=== PATIENT | female | born 1970 | race Caucasian/White ===

== ENCOUNTER 2017-12-27 09:22 | Emergency (ER) | payer OTHER ==
--- NOTE | 2017-12-27 11:19 | UC ---
Lower Extremity/Ankle HPI - HPI Summary HPI Summary: 47 y/o female presents to the urgent care c/o left heel pain for the past 2 days. Pt reports she has been doing aerobics at the gym and last week she went hiking. However, left foot pain became exacerbated when she walks bare footed. Pain is 2/10 at rest dull and sharp 4/10 w/ walking and worse last night. Pt has taken Ibuprofen 400mg PO yesterday night for pain. She was Dx w/ foot tendonitis by an Orthopedic on 06/2017. Pt denies numbness or tingling sensation over left foot, calf pain, SOB, chest pain, palpitations, abdominal pain, N/V/D. - History of Current Complaint Chief Complaint: UCBackPain Stated Complaint: LEFT FOOT PAIN, BACK PAIN Time Seen by Provider: 12/27/17 11:18 Hx Obtained From: Patient Hx Last Menstrual Period: 12/09/2017 ?: No - takes OCP Onset/Duration: Gradual Onset, Lasting Days - 2 days, Still Present Severity Initially: Mild Severity Currently: Moderate Pain Intensity: 4 - walking Pain Scale Used: 0-10 Numeric Aggravating Factor(s): Ambulation Alleviating Factor(s): Rest, OTC Meds Able to Bear Weight: Yes - Risk Factors Gout Risk Factors: Negative DVT Risk Factors: Negative Septic Arthritis Risk Factor: Negative - Allergies/Home Medications Allergies/Adverse Reactions: Allergies Allergy/AdvReac Type Severity Reaction Status Date / Time No Known Allergies Allergy Verified 12/27/17 11:16 Home Medications: Home Medications Bcp 1 tab DAILY 12/27/17 [History Confirmed 12/27/17] PMH/Surg Hx/FS Hx/Imm Hx Previously Healthy: Yes - Pt denies PMHX - Family History Known Family History: Positive: Hypertension, Diabetes - Social History Occupation: Employed Full-time Lives: With Family Review of Systems Constitutional: Negative Skin: Negative Eyes: Negative ENT: Negative Respiratory: Negative Cardiovascular: Negative Gastrointestinal: Negative Genitourinary: Negative Motor: Negative Neurovascular: Negative Musculoskeletal: Decreased ROM - left foot, Other: - left heel pain Neurological: Negative Psychological: Negative Is Patient Immunocompromised?: No All Other Systems Reviewed And Are Negative: Yes Physical Exam - Summary Physical Exam Summary: Vital Signs Reviewed: Yes General : well developed, well nourished female w/o any apparent distress Eyes: Positive: Conjunctiva Clear - PERRLA, EOMI ENT: Positive: Normal ENT inspection, Hearing grossly normal, Pharynx normal, TMs normal Neck: Positive: Supple, Nontender, No Lymphadenopathy Respiratory: Positive: Chest non-tender, Lungs clear, Normal breath sounds, No respiratory distress Cardiovascular: Positive: RRR, No Murmur, Pulses Normal Abdomen Description: Positive: Nontender, No Organomegaly, Soft. Negative: CVA Tenderness (R), CVA Tenderness (L) Bowel Sounds: Positive: Present Musculoskeletal: Positive: Strength Intact, ROM Intact, No Edema,left Foot/Toes : Pt is able to bear weight but ambulate with mild limping. RT foot :No surface trauma, ecchymosis, erythema, lesions, ulcers or break in skin integrity. The L foot is without obvious asymmetry or deformity when compared to the R foot. No bony step-off, No tenderness to palpation over toes, Point tenderness over the sole of hindfoot, no swelling observed, FROM of left foot and ankle. Distal motor and neurovascular status are intact. Neurological Exam: Normal Psychological Exam: Normal Skin Exam: Normal Triage Information Reviewed: Yes Lower Extremity Course/Dx - Course Course Of Treatment: 47 y/o female presents to the urgent care c/o left heel pain for the past 2 days. Pt reports she has been doing aerobics at the gym and last week she went hiking. However, left foot pain became exacerbated when she walks bare footed. Pain is 2/10 at rest dull and sharp 4/10 w/ walking and worse last night. Pt has taken Ibuprofen 400mg PO yesterday night for pain. She was Dx w/ foot tendonitis by an Orthopedic on 06/2017. Pt denies numbness or tingling sensation over left foot, calf pain, SOB, chest pain, palpitations, abdominal pain, N/V/D.Hx obtained. LF foot X-ray ordered, Impression:There was no fracture, dislocation, soft tissue swelling or FB noted. Probably plantar fasciitis or tendonitis. Pt's foot immobilized with isaias-bandage. Advised RICE, and Rx Ibuprofen PO for pain, If not improvement of symptoms to f/u with Orthopedic DR referral for further evaluation and treatment. D/C instructions explained. Pt understood and agreed with D/C instructions - Differential Dx/Diagnosis Differential Diagnosis/HQI/PQRI: Arthritis, Contusion, Fracture (Closed), Gout, Sprain, Strain, Tendonitis Provider Diagnoses: 1- Acute Left foot pain. 2- Left foot plantar fasciitis Discharge - Sign-Out/Discharge Documenting (check all that apply): Patient Departure - D/c home All imaging exams completed and their final reports reviewed: Yes - Discharge Plan Condition: Stable Disposition: HOME Prescriptions: Ibuprofen TAB* [Motrin TAB* 800 MG] 800 mg PO Q6H PRN #30 tab PRN Reason: Pain Patient Education Materials: Plantar Fasciitis (ED) Referrals: [facility] [Outside] - 1 Week () Ranulfo Juarez MD [Medical Doctor] - 1 Week Additional Instructions: 1-Please take medications as directed to alleviate pain and swelling. 2-Please apply ice, keep your foot immobilized with the Isaias bandage. Avoid strenuous exercise or standing for long periods of time. Elevate your foot. Do not walk bear foot 3- Please f/u with your PCP on Orthopedic DR Juarez in 1 week if not improvement of symptoms for further evaluation and treatment. 4- Please f/u w/ Physical therapy referral for further evaluation and treatment - Billing Disposition and Condition Condition: STABLE Disposition: Home - Attestation Statements Provider Attestation: Per institutional requirements, I have reviewed the chart, however, I was not consulted specifically or made aware of this patient by the midlevel provider. I did not personally evaluate, interact with , or disposition this patient.
[2017-12-27 11:25] VITALS: BP 127/85
--- NOTE | 2017-12-27 11:57 | RAD ---
INDICATION: Acute left heel pain. TECHNIQUE: 3 views of the left foot were obtained. FINDINGS: The bones are in normal alignment. No fracture is seen. Joint spaces appear maintained. IMPRESSION: NO EVIDENCE FOR FRACTURE.
== END 2017-12-27 12:16 | disposition home or self-care (01) ==
LOC: UCCORT 09:22
DX: M72.2 Plantar fascial fibromatosis (principal)
CPT/HCPCS: 99212; G0463

== ENCOUNTER 2019-02-08 09:19 | Emergency (ER) | payer BC ==
--- NOTE | 2019-02-08 10:15 | UC ---
Abdominal Pain Female HPI - HPI Summary HPI Summary: 48 yo G0 with onset of epigastric and RUQ and right flank pain x 2+ days ago. Sharp pain began several hours after eating a burrito bowl, without associated nausea or vomiting. Stools have been normal. No previous hx of similar pain. Pain relieved with 3 x 800mg doses of ibuprofen , with last dose being taken last evening at 9 pm. Did not awaken in the night with pain, but was up to void. Ibuprofen did not worsen her epigastric pain or provoke nausea or vomiting. No dysphagia. Although pain is less today, she is concerned that she had right flank pain when she bent to put on her sock. Pain is worse in the RUQ and right flank. No hx of renal stones. Exercises regularly, doing core work, and does regularly use a weighted hula hoop. - History of Current Complaint Chief Complaint: UCAbdominalPain Stated Complaint: SHARP ABD PAIN(RT SIDE) X 36 HOURS,HEARTBURN Time Seen by Provider: 02/08/19 09:37 Hx Obtained From: Patient Hx Last Menstrual Period: "Well, I don't really get it anymore." Onset/Duration: Sudden Onset, Lasting Days, Still Present - overall improved. Timing: Intermittent Episodes Lasting: - hours Severity Initially: Moderate Severity Currently: Mild Pain Intensity: 3 Location: Epigastric, Other - present RUQ but also in the right flank to the level of the umbilicus. Radiates to: Chest - initially had radiation to chest, but this has now resolved. Character: Sharp Aggravating Factor(s): Movement, Other: - appetite decreased Alleviating Factor(s): Position - best with lying on her back. Associated Signs and Symptoms: Positive: Chest Pain - now resolved., Decreased Appetite. Negative: Diaphoresis, Fever, Cough, Back Pain, Constipation, Blood in Stool, Urinary Symptoms, Vaginal Bleeding, Vaginal Discharge, Nausea, Vomiting, Diarrhea - Risk Factors Ectopic Risk Factor: Maternal Age ^ 30 Ovarian Torsion Risk Factor: Negative Allergies/Adverse Reactions: Allergies Allergy/AdvReac Type Severity Reaction Status Date / Time No Known Allergies Allergy Verified 02/08/19 09:32 Home Medications: Home Medications Norethindrone-E.estradiol-Iron [Blessing 24 Fe 1-20 mg-Mcg(24)] 1 tab PO DAILY [History Confirmed 02/08/19] Vitamin THERAPEUTIC TAB* [Theragran TAB*] 1 tab PO DAILY 02/08/19 [History Confirmed 02/08/19] PMH/Surg Hx/FS Hx/Imm Hx Previously Healthy: Yes - Surgical History Surgical History: None - Family History Known Family History: Positive: Hypertension, Diabetes - Social History Occupation: Employed Part-time Lives: With Family Alcohol Use: None Substance Use Type: None Smoking Status (MU): Never Smoked Tobacco Review of Systems All Other Systems Reviewed And Are Negative: Yes Constitutional: Positive: Negative Skin: Positive: Negative Eyes: Positive: Negative ENT: Positive: Negative Respiratory: Negative: Shortness Of Breath, Cough Cardiovascular: Positive: Chest Pain. Negative: Palpitations Gastrointestinal: Positive: Abdominal Pain. Negative: Vomiting, Diarrhea, Nausea Genitourinary: Negative: Dysuria, Hematuria, Frequency, Urgency, Vaginal/Penile Burning, Vaginal/Penile Discharge Motor: Positive: Other - pain worsens with movement. Does do gym work outs including planks regularly but has no recall of injury. Musculoskeletal: Negative: Arthralgia, Decreased ROM, Myalgia Neurological: Positive: Negative, Headache Is Patient Immunocompromised?: No Physical Exam Triage Information Reviewed: Yes Appearance: Well-Appearing, Pain Distress - mild, Thin Vital Signs: Initial Vital Signs Temp 98.3 F 02/08/19 09:29 Pulse 89 02/08/19 09:29 Resp 15 02/08/19 09:29 BP 119/76 02/08/19 09:29 Pulse Ox 100 02/08/19 09:29 Eye Exam: Normal ENT: Positive: Pharynx normal Dental Exam: Normal Neck: Positive: Supple, Nontender, No Lymphadenopathy Respiratory: Positive: Lungs clear, Normal breath sounds, No respiratory distress Cardiovascular: Positive: RRR, No Murmur Abdomen Description: Positive: No Organomegaly, Soft, Guarding - tenderness along the liver edge and in the epigastrium with voluntary guarding, no rebound.. Negative: CVA Tenderness (R), CVA Tenderness (L), Distended, Hepatomegaly, Peritoneal Signs, Splenomegaly Musculoskeletal: Positive: Strength Intact, ROM Intact Neurological Exam: Normal Neurological: Positive: Alert Psychological Exam: Normal Skin Exam: Normal Diagnostics - Laboratory Lab Results: UA with trace blood and leukocyte esterace. - Radiology No standard instances Radiology Interpretation Completed By: Radiologist - Patient Name: JOSE CALDERON Medical Record#: [id number] Ordering Physician: Dejah Campbell MD Acct.#: [id number] : 1970 Age: 48 Sex: F Location: [facility] Exam Date: 02/08/19 1022 ADM Status: REG ER Order Information: US GALL BLADDER Accession Number: [id number] CPT: 14138 Indication: 2 days RIGHT upper quadrant and epigastric pain. Comparison: No relevant prior exams available on the [facility] PACS for comparison. Technique: RIGHT upper quadrant ultrasound. Report: Appropriate direction flow documented in the portal and hepatic veins. 14.6 cm liver is normal in echogenicity. Negative for focal hepatic lesions. Negative for intrahepatic biliary dilatation. 0.3 cm common bile duct. Adequately distended gallbladder with normal 0.2 cm wall is without pathologic finding. Negative for sonographic Hoffman's sign. Unremarkable well visualized pancreas. Negative for ascites. 10.0 cm x 4.4 cm x 3.5 cm RIGHT kidney is unremarkable. IMPRESSION: #. Negative RIGHT upper quadrant ultrasound. <Electronically signed by Denis Hernández MD in OV> 02/08/19 1210 Dictated By: Denis Hernández MD Dictated Date/Time: 02/08/19 1207 Transcribed Date/Time: 02/08/19 1207 Copy to: CC:Dejah Campbell MD; No Primary Care Phys,[facility] Imaging - [facility] [address] [address] ph ([phone]) ph ([phone]) ph ([phone]) This report is only to be considered final once signed by the Provider(s) as displayed in the "<Electronically Signed by >" field (s). Absence of a signature indicates the report is in a draft status and still needs to be finalized. In the event this document was created by someone other than the signing Provider, the individual initiating the document will be listed in the "Entered by:" or "Dictated by:" [email or web address]. 1 of 2 - EKG Cardiac Rate: NL Cardiac Rhythm: Sinus: Normal Ectopy: None ST Segment: Normal Abd Pain Female Course/Dx - Course Course Of Treatment: Discussed that if cramping returns, develops a fever or vomiting, will need ER evaluation. Will continue to rest, eat lightly and observe. - Differential Dx/Diagnosis Differential Diagnosis: Constipation, Gall Bladder Disease, Renal Colic, Urinary Tract Infection Provider Diagnosis: Abdominal pain, right upper quadrant Discharge ED - Sign-Out/Discharge Documenting (check all that apply): Patient Departure All imaging exams completed and their final reports reviewed: Yes - Discharge Plan Condition: Stable Disposition: HOME Patient Education Materials: Acute Abdominal Pain (ED) Referrals: No Primary Care Phys,NOPCP [Primary Care Provider] - Additional Instructions: IF THE PAIN WORSENS, YOU DEVELOP A FEVER OR VOMITING, PLEASE PROCEED TO THE EMERGENCY ROOM FOR EVALUATION WE HAVE DISCUSSED. Continue to eat lightly, and you can use ibuprofen for pain because it was helpful. You might try an antacid if you have recurrence of heartburn. - Billing Disposition and Condition Condition: STABLE Disposition: Home
[2019-02-08 11:25] VITALS: BP 121/67
== END 2019-02-08 12:33 | disposition home or self-care (01) ==
LOC: UCCORT 09:19
DX: R10.11 Right upper quadrant pain (principal); R10.13 Epigastric pain
CPT/HCPCS: 76705; 81003; 84702; 87086; 93005; 99212; G0463